=== PATIENT | male | born 1980 | race African-American/Black ===

== ENCOUNTER 2017-02-19 08:36 | Emergency (ER) | payer MEDICARE, MEDICAID ==
[2017-02-19] MEDS ORDERED: PREDNISONE 20 MG TABLET PO ONE (09:04)
[2017-02-19] MEDS ORDERED: ALBUTEROL SULFATE 0.083% NEB 2.5 MG/3 ML AMPUL NEB ONE (09:04)
--- NOTE | 2017-02-19 09:08 | ER Document Report ---
ED Respiratory Problem - General Chief Complaint: Congestion Stated Complaint: CONGESTION Time Seen by Provider: 02/19/17 08:45 Mode of Arrival: Ambulatory Information source: Patient Notes: Pt is a 36 year old male with lupus who presents to the ER today for runny nose and mild cough x 2 days. He admits to chest tightness and some sob. Pt states "this is usually how my lupus flares up." He denies joint aches, fever/chills, wheezing or other symptoms. TRAVEL OUTSIDE OF THE [place] IN LAST 30 DAYS: No - Related Data Allergies/Adverse Reactions: COMPA Inhibitors [Compa Inhibitors] Allergy (Intermediate, Verified 02/19/17 08:37) Hives prednisone [Prednisone] Allergy (Intermediate, Verified 02/19/17 08:37) Hives Sulfa (Sulfonamide Antibiotics) Allergy (Intermediate, Verified 02/19/17 08:37) Hives ACEINHIBITORS [COMPA Inhibitors] Allergy (Unknown, Verified 02/19/17 08:37) shellfish derived [Shellfish Derived] Allergy (Unknown, Verified 02/19/17 08:37) iodine [Iodine] Allergy (Verified 02/19/17 08:37) sulfamethoxazole [From Septra DS] Allergy (Verified 02/19/17 08:37) trimethoprim [From Septra DS] Allergy (Verified 02/19/17 08:37) Past Medical History - General Information source: Patient - Social History Smoking Status: Current Some Day Smoker Chew tobacco use (# tins/day): No Family History: Reviewed & Not Pertinent Patient has suicidal ideation: No Patient has homicidal ideation: No - Past Medical History Cardiac Medical History: Reports: Hx DVT Renal/ Medical History: Denies: Hx Peritoneal Dialysis Musculoskeltal Medical History: Reports Hx Arthritis - RA Past Surgical History: Reports: Hx Orthopedic Surgery - distal R index finger amputated, Hx Testicular Surgery - R testicle removed - Immunizations Immunizations up to date: Yes Hx Diphtheria, Pertussis, Tetanus Vaccination: No Review of Systems - Review of Systems Constitutional: No symptoms reported EENT: See HPI Cardiovascular: No symptoms reported Respiratory: No symptoms reported Gastrointestinal: No symptoms reported Genitourinary: No symptoms reported Male Genitourinary: No symptoms reported Musculoskeletal: No symptoms reported Skin: No symptoms reported Hematologic/Lymphatic: No symptoms reported Neurological/Psychological: No symptoms reported Physical Exam - Vital signs Vitals: Temp Pulse Resp BP Pulse Ox 98.1 F 70 18 109/61 93 02/19/17 08:41 02/19/17 08:41 02/19/17 08:41 02/19/17 08:41 02/19/17 08:41 - Notes Notes: PHYSICAL EXAMINATION: GENERAL: well appearing, but in no acute distress. HEAD: Atraumatic, normocephalic. EYES: Pupils equal round and reactive to light, extraocular movements intact, sclera anicteric, conjunctiva are normal. NECK: Normal range of motion, supple without lymphadenopathy LUNGS: CTAB and equal. No wheezes rales or rhonchi. HEART: regular rate and rhythm without murmurs ABDOMEN: Soft, no tenderness. No guarding, no rebound BACK: no vertebral tenderness, normal ROM GI/: no CVA tenderness EXTREMITIES: Normal range of motion, no pitting edema, No cyanosis. NEUROLOGICAL:cranial nerves grossly intact, normal motor and sensory exam PSYCH: Normal mood, normal affect. SKIN: Warm, Dry, normal turgor, no rashes Course - Re-evaluation Re-evalutation: 02/23/17 21:04 pt will be started on prednisone as it will help his cold symptoms and his lupus if in fact this is a flare. chest x ray negative today. pt given breathing treatment here, sent home with albuterol inhaler, reports feeling better. 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 Return immediately for any new or worsening symptoms. Follow up with primary care provider, call tomorrow to make followup appointment. Prescriptions: Prednisone [Deltasone 20 mg Tablet] 3 tab PO DAILY 5 Days tablet Forms: Return to Work Referrals: SILVESTRE SORIA MD [Primary Care Provider] - Follow up as needed
--- NOTE | 2017-02-19 09:49 | RADIOLOGY REPORT (SQ) ---
EXAM DESCRIPTION: CHEST PA/LAT COMPLETED DATE/TIME: 02/19/2017 9:40 am REASON FOR STUDY: sob COMPARISON: 11/20/2015 EXAM PARAMETERS: NUMBER OF VIEWS: two views TECHNIQUE: Digital Frontal and Lateral radiographic views of the chest acquired. RADIATION DOSE: NA LIMITATIONS: none FINDINGS: LUNGS AND PLEURA: No opacities, masses or pneumothorax. No pleural effusion. MEDIASTINUM AND HILAR STRUCTURES: No masses or contour abnormalities. HEART AND VASCULAR STRUCTURES: Heart normal size. No evidence for failure. BONES: Stable sclerosis of the humeral head suggestive of avascular necrosis. HARDWARE: None in the chest. OTHER: No other significant finding. IMPRESSION: NO ACUTE CARDIOPULMONARY PROCESS OR SIGNIFICANT CHANGE FROM PRIOR STUDIES. TECHNICAL DOCUMENTATION: JOB ID: [id number] [employer]- All Rights Reserved
[2017-02-19] MEDS ORDERED: ALBUTEROL SULFATE HFA (90 MCG/PUFF) 8 GM MDI (1 MDI/ER DISP) IH PRN (10:02)
[2017-02-19 10:37] VITALS: BP 108/62
== END 2017-02-19 10:37 | disposition home or self-care (01) ==
LOC: ER 08:36
DX: R06.02 Shortness of breath (principal); L93.0 Discoid lupus erythematosus; J00 Acute nasopharyngitis [common cold]; Z86.718 Personal history of other venous thrombosis and embolism; F17.200 Nicotine dependence, unspecified, uncomplicated; Z88.2 Allergy status to sulfonamides; Z88.1 Allergy status to other antibiotic agents; Z91.013 Allergy to seafood
CPT/HCPCS: 94640; 99283; 71046; A9270 ×2; J3490; J7512

== ENCOUNTER 2017-07-12 10:10 | Emergency (ER) | payer MEDICARE, MEDICAID ==
[2017-07-12 10:17] VITALS: BP 108/69
--- NOTE | 2017-07-12 10:47 | ER Document Report ---
HPI - HPI Pain Level: 3 Context: 36 yo male with hx/o Lupus, c/o sore throat, cough x 2 days. no fever Associated Symptoms: Body/muscle aches, Nonproductive cough, Headache, Rhinnorhea, Sinus pain/drainage. denies: Nausea, Vomiting Exacerbated by: Denies Relieved by: Denies Similar symptoms previously: No Recently seen / treated by doctor: No - CONSTITUTIONAL Constitutional: DENIES: Fever, Chills - EENT EENT: REPORTS: Sore Throat - RESPIRATORY Respiratory: REPORTS: Coughing Past Medical History - General Information source: Patient - Social History Smoking Status: Current Every Day Smoker Frequency of alcohol use: Occasional Drug Abuse: None Lives with: Family Family History: Reviewed & Not Pertinent Patient has suicidal ideation: No Patient has homicidal ideation: No - Medical History Medical History: Other - lupus - Past Medical History Cardiac Medical History: Reports: Hx DVT Renal/ Medical History: Denies: Hx Peritoneal Dialysis Musculoskeltal Medical History: Reports Hx Arthritis - RA Past Surgical History: Reports: Hx Orthopedic Surgery - distal R index finger amputated, Hx Testicular Surgery - R testicle removed - Immunizations Immunizations up to date: Yes Hx Diphtheria, Pertussis, Tetanus Vaccination: No Vertical Provider Document - CONSTITUTIONAL Agree With Documented VS: Yes Exam Limitations: No Limitations - INFECTION CONTROL TRAVEL OUTSIDE OF THE [place] IN LAST 30 DAYS: No - HEENT HEENT: Atraumatic, PERRLA, Pharyngeal Erythema - NECK Neck: Normal Inspection, Supple - RESPIRATORY Respiratory: Breath Sounds Normal, No Respiratory Distress Course - Re-evaluation Re-evalutation: 07/12/17 10:43 H&P c/w URI. with hx/o Lupus, will send with Rx for antibiotic but instructed not to start abx unless symptoms escalate. home care, pcm follow up and ED return precautions discussed with pt. pt stable for discharge - Vital Signs Vital signs: Temp Pulse Resp BP Pulse Ox 98.8 F 92 18 108/69 99 07/12/17 10:15 07/12/17 10:15 07/12/17 10:15 07/12/17 10:15 07/12/17 10:15 Discharge - Discharge Clinical Impression: URI, acute Condition: Stable Disposition: HOME, SELF-CARE Instructions: Urinary Tract Infection ([facility]), Antibiotic Therapy ([facility]) Additional Instructions: recommend OTC cough/cold medication such as AlkaSeltzer Plus follow up with primary care if symptoms persist start antibiotic if symptoms continue to escalate after 4 days Prescriptions: Amoxicillin 500 mg PO TID #21 tablet Referrals: SILVESTRE SORIA MD [Primary Care Provider] - Follow up as needed
== END 2017-07-12 10:52 | disposition home or self-care (01) ==
LOC: ER 10:10
DX: J06.9 Acute upper respiratory infection, unspecified (principal); J02.9 Acute pharyngitis, unspecified; M79.1 Myalgia; R51 Headache; F17.200 Nicotine dependence, unspecified, uncomplicated; Z86.718 Personal history of other venous thrombosis and embolism
CPT/HCPCS: 87070; 87880; 99283

== ENCOUNTER → 2018-04-27 | Outpatient (CLI) | payer MEDICARE ==
--- NOTE | 2018-04-27 16:47 | XCELERA REPORT ---
[address] [place] [facility] [place] [address] Lower Extremity Venous Evaluation Procedure: Color flow and duplex imaging of the veins of the left lower extremity as well as the right Common Femoral vein. Right Sided Venous Evaluation The right common femoral vein is fully compressible. Spontaneous and phasic flow is present in the right common femoral vein. Left Sided Venous Evaluation Normal vessel filling wall to wall, compression and augmentation as well as Colour flow down to the infrageniculate veins. Interpretation Summary No duplex evidence of DVT or obstruction in the left lower extremity nor in the right Common Femoral vein. Name: NAZ MANNSANJANA Mello Age: 37 yrs Gender: Male : 1980 Patient Status: Preadmit Patient Location: Study Date: 04/27/2018 01:36 PM Reason For Study: LLE SWELLING Ordering Physician: DAVID KINGSTON Performed By: Luis Angel Bansal : DAVID KINGSTON > Laci Perez
== END ==
LOC: SP 14:42
PROVIDERS: ATTEND Physician Assistant
DX: M79.89 Other specified soft tissue disorders (principal)
CPT/HCPCS: 93971

== ENCOUNTER 2018-05-25 15:48 | Emergency (ER) | payer MEDICARE, MEDICAID ==
[2018-05-25] MEDS ORDERED: DIPHENHYDRAMINE HCL 50 MG/ML VIAL IV ONE (16:26)
[2018-05-25] MEDS ORDERED: METHYLPREDNISOLONE INJ 125 MG/2 ML SDV IV ONE (16:26)
[2018-05-25] MEDS ORDERED: FAMOTIDINE INJ/PF 20 MG/2 ML SDV IV ONE (16:26)
--- NOTE | 2018-05-25 18:35 | ER Document Report ---
ED General - General Chief Complaint: Sore Throat Stated Complaint: SORE THROAT Time Seen by Provider: 05/25/18 16:14 Primary Care Provider: DAVID KINGSTON PA [NO LOCAL MD] - Follow up as needed Mode of Arrival: Ambulatory Information source: Patient Notes: Patient is a 37-year-old male who presents to the emergency department with complaints of itching in his throat. He states he believes he is having allergic reaction to a medication that he is taking for his face. He states that is the only new product he is used. Patient speaking in full complete sentences and swallowing without difficulty. Patient has no hives. He states the throat itching started just a few hours prior to arrival. TRAVEL OUTSIDE OF THE [place] IN LAST 30 DAYS: No - Related Data Allergies/Adverse Reactions: COMPA Inhibitors [Compa Inhibitors] Allergy (Intermediate, Verified 05/25/18 15:49) Hives Sulfa (Sulfonamide Antibiotics) Allergy (Intermediate, Verified 05/25/18 15:49) Hives ACEINHIBITORS [COMPA Inhibitors] Allergy (Unknown, Verified 05/25/18 15:49) shellfish derived [Shellfish Derived] Allergy (Unknown, Verified 05/25/18 15:49) iodine [Iodine] Allergy (Verified 05/25/18 15:49) sulfamethoxazole [From Septra DS] Allergy (Verified 05/25/18 15:49) trimethoprim [From Septra DS] Allergy (Verified 05/25/18 15:49) Past Medical History - General Information source: Patient - Social History Smoking Status: Current Every Day Smoker Frequency of alcohol use: None Drug Abuse: None Family History: Reviewed & Not Pertinent Patient has suicidal ideation: No Patient has homicidal ideation: No - Past Medical History Cardiac Medical History: Reports: Hx DVT Renal/ Medical History: Denies: Hx Peritoneal Dialysis Musculoskeletal Medical History: Reports Hx Arthritis - RA Past Surgical History: Reports: Hx Orthopedic Surgery - distal R index finger amputated, Hx Testicular Surgery - R testicle removed - Immunizations Immunizations up to date: Yes Hx Diphtheria, Pertussis, Tetanus Vaccination: No Review of Systems - Review of Systems Constitutional: No symptoms reported EENT: Other - Throat itchiness Cardiovascular: No symptoms reported Respiratory: No symptoms reported Gastrointestinal: No symptoms reported Genitourinary: No symptoms reported Male Genitourinary: No symptoms reported Musculoskeletal: No symptoms reported Skin: No symptoms reported Hematologic/Lymphatic: No symptoms reported Neurological/Psychological: No symptoms reported Physical Exam - Vital signs Vitals: Temp Pulse Resp BP Pulse Ox 98.3 F 86 17 108/59 L 100 05/25/18 15:53 05/25/18 15:53 05/25/18 15:53 05/25/18 15:53 05/25/18 15:53 - Notes Notes: PHYSICAL EXAMINATION: GENERAL: Well-appearing, well-nourished and in no acute distress. HEAD: Atraumatic, normocephalic. EYES: Pupils equal round and reactive to light, extraocular movements intact, sclera anicteric, conjunctiva are normal. ENT: Nares patent, oropharynx clear without exudates. Moist mucous membranes. NECK: Normal range of motion, supple without lymphadenopathy LUNGS: Breath sounds clear to auscultation bilaterally and equal. No wheezes rales or rhonchi. HEART: Regular rate and rhythm without murmurs ABDOMEN: Soft, nontender, nondistended abdomen. No guarding, no rebound. No m asses appreciated. Musculoskeletal: Normal range of motion, no pitting or edema. No cyanosis. NEUROLOGICAL: Cranial nerves grossly intact. Normal speech, normal gait. Normal sensory, motor exams PSYCH: Normal mood, normal affect. SKIN: Warm, Dry, normal turgor, no rashes or lesions noted. Course - Re-evaluation Re-evalutation: Patient given 125 mg Solu-Medrol, 20 mg Pepcid IV and 25 mg of Benadryl. Patient was monitored for 2 hours. Patient reports his symptoms have improved. We did not give patient IM epinephrine as patient did not have severe symptoms or any signs of anaphylaxis. Patient will be discharged home with instructions to continue taking Pepcid, prednisone and Benadryl. Patient given strict ED return precautions. Patient told not to take the face cream until he is seen by his primary care provider for follow-up. - Vital Signs Vital signs: Temp Pulse Resp BP Pulse Ox 98.3 F 86 16 132/62 H 100 05/25/18 15:53 05/25/18 15:53 05/25/18 18:43 05/25/18 18:43 05/25/18 18:43 Discharge - Discharge Clinical Impression: Itching sensation in throat, Allergic reaction caused by a drug Condition: Stable Disposition: HOME, SELF-CARE Additional Instructions: Your symptoms are most likely being caused by some type of allergic reaction. Please take the medications I have prescribed as directed. Please also take 25- 50 mg of Benadryl every 6 hours, this may cause some drowsiness to please use caution when taking it. Please do not use the triamcinolone cream until we are able to figure out if that is what is causing this. Please follow-up with your primary care provider, call them next week for an appointment. Return to the emergency department for any new or worsening symptoms to include difficulty breathing, shortness of breath or difficulty swallowing. Prescriptions: Famotidine [Pepcid 20 mg Tablet] 20 mg PO BID #10 tablet RX: Prednisone [Deltasone 20 mg Tablet] 3 tab PO DAILY 4 Days #12 tablet Referrals: DAVID KINGSTON PA [NO LOCAL MD] - Follow up as needed
[2018-05-25 18:47] VITALS: BP 132/62
== END 2018-05-25 18:47 | disposition home or self-care (01) ==
LOC: ER 15:48
DX: J02.9 Acute pharyngitis, unspecified (principal); R09.89 Other specified symptoms and signs involving the circulatory and respiratory systems; T50.905A Adverse effect of unspecified drugs, medicaments and biological substances, initial encounter; X58.XXXA Exposure to other specified factors, initial encounter; Z88.3 Allergy status to other anti-infective agents; Z88.2 Allergy status to sulfonamides; F17.200 Nicotine dependence, unspecified, uncomplicated; Z86.718 Personal history of other venous thrombosis and embolism
CPT/HCPCS: 99282; 96375; 96374; J1200; J2930; S0028

== ENCOUNTER 2018-05-30 23:18 | Emergency (ER) | payer MEDICARE, MEDICAID ==
[2018-05-31 00:30] VITALS: BP 111/71
== END 2018-05-31 01:55 | disposition left against medical advice (07) ==
LOC: ER 23:18
DX: Z53.21 Procedure and treatment not carried out due to patient leaving prior to being seen by health care provider (principal)

== ENCOUNTER 2018-05-31 19:51 | Emergency (ER) | payer MEDICARE, MEDICAID ==
--- NOTE | 2018-05-31 23:07 | ER Document Report ---
ED Medical Screen (RME) - General Chief Complaint: Shortness Of Breath Stated Complaint: POSSIBLE BLOOD CLOT Time Seen by Provider: 05/31/18 22:55 Primary Care Provider: LUZ ELENA BLANCO PA [Primary Care Provider] - Follow up as needed TRAVEL OUTSIDE OF THE [place] IN LAST 30 DAYS: No - HPI Notes: 05/31/18 23:05 Patient is a 37-year-old male with a history of DVT in his left lower extremity presents emergency department per the direction of his family doctor, Dr. Hirsch, for further evaluation for possible PE or blood clot in his leg. Patient states that over the past 4 days he has had shortness of breath and mild chest pain. Ambulation makes his symptoms worse. Patient was told today by his family doctor that he has an elevated d-dimer at 3.3. Patient also states that his left lower leg is more swollen than his usual (Lt usually larger than Rt). Denies RODRIGUEZ, fever, neck pain, URI, Abd pain, or rash. I have treated and performed a rapid initial assessment of this patient. A comprehensive ED assessment and evaluation of the patient, analysis of test results and completion of medical decision making process will be conducted by additional ED providers. PHYSICAL EXAMINATION: GENERAL: Well-appearing, well-nourished and in no acute distress. A&Ox4. Answers questions appropriately. LUNGS: Breath sounds clear to auscultation bilaterally and equal. No wheezes rales or rhonchi. HEART: Regular rate and rhythm without murmurs, rubs, gallops. Extremities: LLE 1-2+ pitting edema, RLE trace pitting edema. NEUROLOGICAL: Normal speech, normal gait. PSYCH: Normal mood, normal affect. - Related Data Allergies/Adverse Reactions: COMPA Inhibitors [Compa Inhibitors] Allergy (Intermediate, Verified 05/25/18 15:49) Hives Sulfa (Sulfonamide Antibiotics) Allergy (Intermediate, Verified 05/25/18 15:49) Hives ACEINHIBITORS [COMPA Inhibitors] Allergy (Unknown, Verified 05/25/18 15:49) shellfish derived [Shellfish Derived] Allergy (Unknown, Verified 05/25/18 15:49) iodine [Iodine] Allergy (Verified 05/25/18 15:49) sulfamethoxazole [From Septra DS] Allergy (Verified 05/25/18 15:49) trimethoprim [From Septra DS] Allergy (Verified 05/25/18 15:49) Past Medical History - Social History Chew tobacco use (# tins/day): No Frequency of alcohol use: Social Drug Abuse: None - Past Medical History Cardiac Medical History: Reports: Hx DVT Renal/ Medical History: Denies: Hx Peritoneal Dialysis Musculoskeltal Medical History: Reports Hx Arthritis - RA Past Surgical History: Reports: Hx Orthopedic Surgery - distal R index finger amputated, Hx Testicular Surgery - R testicle removed - Immunizations Immunizations up to date: Yes Hx Diphtheria, Pertussis, Tetanus Vaccination: No Physical Exam - Vital signs Vitals: Temp Pulse Resp BP Pulse Ox 98.1 F 93 16 120/55 L 100 05/31/18 20:01 05/31/18 20:01 05/31/18 20:01 05/31/18 20:01 05/31/18 20:01 Course - Vital Signs Vital signs: Temp Pulse Resp BP Pulse Ox 98.1 F 93 16 120/55 L 100 05/31/18 20:01 05/31/18 20:01 05/31/18 20:01 05/31/18 20:01 05/31/18 20:01 Doctor's Discharge - Discharge Referrals: LUZ ELENA BLANCO PA [Primary Care Provider] - Follow up as needed
--- NOTE | 2018-06-01 00:14 | RADIOLOGY REPORT (SQ) ---
EXAM DESCRIPTION: XR CHEST 1 VIEW COMPLETED DATE/TME: 05/31/2018 23:00 CLINICAL HISTORY: 37 years, Male, SOB Comparison: None FINDINGS: No focal lung consolidation. No pleural effusion. No pneumothorax. Cardiac and mediastinal silhouette is unremarkable. No acute osseous abnormality. Soft tissues are unremarkable. IMPRESSION: No acute findings. No focal lung consolidation.
[2018-06-01 01:23] LABS: ABSOLUTE EOSINOPHILS # (AUTO) 0.1 10^3/uL (0.0-0.6); ABSOLUTE MONOCYTES (AUTO) 0.6 10^3/uL (0.1-1.4); ABSOLUTE NEUT (AUTO) 3.4 10^3/uL (1.7-8.2); BASOPHILS % (AUTO) 0.6 % (0-2); EOSINOPHILS % (AUTO) 1.8 % (0-6); HEMATOCRIT 38.5 % (37.9-51.0); LYMPHOCYTES % (AUTO) 42.2 % (13-45); MEAN CORPUSCULAR HGB CONC 33.8 g/dL (32.0-36.0); MEAN CORPUSCULAR VOLUME 89 fl (80-97); MONOCYTES % (AUTO) 7.9 % (3-13); PLATELET COUNT 122 10^3/uL (150-450); RED BLOOD COUNT 4.35 10^6/uL (4.35-5.55); RED CELL DISTRIBUTION WIDTH 13.9 % (11.5-14.0); SEGMENTED NEUTROPHILS % (AUTO) 47.5 % (42-78); TOTAL CELLS COUNTED % (AUTO) 100 %; WHITE BLOOD COUNT 7.2 10^3/uL (4.0-10.5)
[2018-06-01 01:28] LABS: INTERNATIONAL RATION (INR) 1.01; PROTHROMBIN TIME 13.8 SEC (11.4-15.4)
[2018-06-01 01:29] LABS: PARTIAL THROMBOPLASTIN TIME 26.3 SEC (23.5-35.8)
--- NOTE | 2018-06-01 01:43 | RADIOLOGY REPORT (SQ) ---
EXAM DESCRIPTION: CT CHEST ANGIOGRAPHY WITHOUT THEN WITH IV CONTRAST COMPLETED DATE/TME: 05/31/2018 23:00 CLINICAL HISTORY: 37 years, Male, elevated d-dimer, sob, cp COMPARISON: 07/09/2014 CTA chest TECHNIQUE: 624 Images stored on PACS. All CT scanners at this facility use dose modulation, iterative reconstruction, and/or weight based dosing when appropriate to reduce radiation dose to as low as reasonably achievable (ALARA). Axial images obtained with coronal and sagittal MIPS reconstructions [facility]: Dose Right [facility]: CareDose [facility]: Dose Right [facility]: Teradose 4D [facility]: [employer] LIMITATIONS: None. FINDINGS: The mediastinal vasculature enhances normally. There is no intraluminal filling defect to suggest pulmonary embolus. Negative for thoracic aortic aneurysm or dissection. No mediastinal or hilar adenopathy. Heart and pericardium are unremarkable. Limited evaluation of upper abdomen unremarkable. Osseous structures grossly intact. No pneumothorax. Visualized airways are patent. Lungs are clear IMPRESSION: Negative CTA chest TECHNICAL DOCUMENTATION: Quality ID # [id number]: Final reports with documentation of one or more dose reduction techniques (e.g., Automated exposure control, adjustment of the mA and/or kV according to patient size, use of iterative reconstruction technique) copyright 2010 [employer]- All Rights Reserved
[2018-06-01 01:47] LABS: ALANINE AMINOTRANSFERASE 27 U/L (21-72); ALBUMIN 3.8 g/dL (3.5-5.0); ALKALINE PHOSPHATASE 58 U/L (38-126); ANION GAP 7 (5-19); ASPARTATE AMINO TRANSFERASE 19 U/L (17-59); BILIRUBIN,DIRECT 0.2 mg/dL (0.0-0.4); BILIRUBIN,TOTAL 0.5 mg/dL (0.2-1.3); BLOOD UREA NITROGEN 15 mg/dL (7-20); CALCIUM 9.1 mg/dL (8.4-10.2); CARBON DIOXIDE 31 mmol/L (22-30); CHLORIDE 105 mmol/L (98-107); GLUCOSE 116 mg/dL (75-110); POTASSIUM 3.6 mmol/L (3.6-5.0); SODIUM 142.6 mmol/L (137-145); TOTAL PROTEIN 7.2 g/dL (6.3-8.2)
--- NOTE | 2018-06-01 02:36 | ER Document Report ---
ED General - General Chief Complaint: Shortness Of Breath Stated Complaint: POSSIBLE BLOOD CLOT Time Seen by Provider: 05/31/18 22:55 Primary Care Provider: LUZ ELENA BLANCO PA [PHYSICIAN [employer]ING PAT[employer]ER] - Follow up as needed Notes: Patient is a 37-year-old male with a history of DVT in his left lower extremity presents emergency department per the direction of his family doctor, Dr. Hirsch, for further evaluation for possible PE. Patient states that over the past 4 days he has had shortness of breath and mild chest pain. Pain is regarded as mild, intermittent, stabbing in nature. States that exerting himself seems to worsen his discomfort, rest seems to improve the pain. Patient was told today by his family doctor that he has an elevated d-dimer at 3.3. Patient also states that his left lower leg is more swollen than his usual (Lt usually larger than Rt). Denies any radiation of the pain. No pain to the back. Denies cardiac history. Denies any chest pain at the time of my evaluation. TRAVEL OUTSIDE OF THE [place] IN LAST 30 DAYS: No - Related Data Allergies/Adverse Reactions: COMPA Inhibitors [Compa Inhibitors] Allergy (Intermediate, Verified 05/25/18 15:49) Hives Sulfa (Sulfonamide Antibiotics) Allergy (Intermediate, Verified 05/25/18 15:49) Hives ACEINHIBITORS [COMPA Inhibitors] Allergy (Unknown, Verified 05/25/18 15:49) shellfish derived [Shellfish Derived] Allergy (Unknown, Verified 05/25/18 15:49) iodine [Iodine] Allergy (Verified 05/25/18 15:49) sulfamethoxazole [From Septra DS] Allergy (Verified 05/25/18 15:49) trimethoprim [From Septra DS] Allergy (Verified 05/25/18 15:49) Past Medical History - General Information source: Patient - Social History Smoking Status: Current Every Day Smoker Chew tobacco use (# tins/day): No Frequency of alcohol use: Social Drug Abuse: None Lives with: Family Family History: Reviewed & Not Pertinent Patient has suicidal ideation: No Patient has homicidal ideation: No - Past Medical History Cardiac Medical History: Reports: Hx DVT Renal/ Medical History: Denies: Hx Peritoneal Dialysis Musculoskeletal Medical History: Reports Hx Arthritis - RA Past Surgical History: Reports: Hx Orthopedic Surgery - distal R index finger amputated, Hx Testicular Surgery - R testicle removed - Immunizations Immunizations up to date: Yes Hx Diphtheria, Pertussis, Tetanus Vaccination: No Review of Systems - Review of Systems Notes: Constitutional: Negative for fever. HENT: Negative for sore throat. Eyes: Negative for visual changes. Cardiovascular: Positive for chest pain. Respiratory: Positive for shortness of breath. Gastrointestinal: Negative for abdominal pain, vomiting or diarrhea. Genitourinary: Negative for dysuria. Musculoskeletal: Negative for back pain. Skin: Negative for rash. Neurological: Negative for headaches, weakness or numbness. 10 point ROS negative except as marked above and in HPI. Physical Exam - Vital signs Vitals: Temp Pulse Resp BP Pulse Ox 98.1 F 93 16 120/55 L 100 05/31/18 20:01 05/31/18 20:01 05/31/18 20:01 05/31/18 20:01 05/31/18 20:01 Interpretation: Normal Notes: PHYSICAL EXAMINATION: GENERAL: Well-appearing, well-nourished and in no acute distress. HEAD: Atraumatic, normocephalic. EYES: Pupils equal round and reactive to light, extraocular movements intact, s clera anicteric, conjunctiva are normal. ENT: nares patent, oropharynx clear without exudates. Moist mucous membranes. NECK: Normal range of motion, supple without lymphadenopathy LUNGS: Breath sounds clear to auscultation bilaterally and equal. No wheezes rales or rhonchi. HEART: Regular rate and rhythm without murmurs ABDOMEN: Soft, nontender, normoactive bowel sounds. No guarding, no rebound. No masses appreciated. EXTREMITIES: Normal range of motion, mild trace edema in the left lower extremity. None present on right no cyanosis. NEUROLOGICAL: No focal neurological deficits. Moves all extremities spontaneously and on command. PSYCH: Normal mood, normal affect. SKIN: Warm, Dry, normal turgor, no rashes or lesions noted. Course - Re-evaluation Re-evalutation: 06/01/18 02:34 Patient presents with concerns of a possible pulmonary embolus stating that he has been more short of breath over the last 4 days and feels like his chronic left lower cavity swelling may be worse than normal. Had a d-dimer obtained by his primary care doctor noted to be elevated. CT of the chest is negative. Patient has no appreciable edema to the left lower cavity although it is slightly larger than the right which he states is about at baseline. I did express the patient that we are currently unable to get a venous Doppler of his left lower summary given the time of night. He does not wish to remain in the emergency department overnight. I have asked that he follow-up with his primary care doctor tomorrow morning, contact office and request for the study to be completed as an outpatient or return to the emergency department at 8 AM when the study can be done at that time. He is agreeable to this plan. At this time will discharge with return precautions and follow-up recommendations. Verbal discharge instructions given a the bedside and opportunity for questions given. Medication warnings reviewed. Patient is in agreement with this plan and has verbalized understanding of return precautions and the need for primary care follow-up tomorrow. - Vital Signs Vital signs: Temp Pulse Resp BP Pulse Ox 97.6 F 93 19 138/63 H 97 06/01/18 03:00 05/31/18 20:01 06/01/18 03:00 06/01/18 03:00 06/01/18 03:00 - Laboratory Result Diagrams: 06/01/18 01:10 06/01/18 01:10 Laboratory results interpreted by me: 06/01/18 06/01/18 01:10 01:10 Hgb 13.0 L Plt Count 122 L Carbon Dioxide 31 H Glucose 116 H - Diagnostic Test Radiology reviewed: Reports reviewed Discharge - Discharge Clinical Impression: Shortness of breath, History of DVT (deep vein thrombosis), Left leg swelling Condition: Good Disposition: HOME, SELF-CARE Additional Instructions: Follow-up with Dr. Hirsch in the morning to determine whether or not you can get a venous Doppler study done of your left lower extremity as an outpatient within the next 24 hours. Your or your primary doctor does prefer you can return to the emergency department in the morning for the study to be completed. This CAT scan your chest is normal today and you do not have any evidence of a blood clot in your lung. Return if you develop chest pain, worsening shortness of breath, pass out, or have any other symptoms that are worrisome to you. Referrals: LUZ ELENA BLANCO PA [PHYSICIAN [employer]ING PATTERN[employer]ER] - Follow up as needed
[2018-06-01 03:11] VITALS: BP 138/63
--- NOTE | 2018-06-01 09:51 | EKG REPORT ---
SEVERITY:- NORMAL ECG - SINUS RHYTHM : Confirmed by: Estefany Goldsmith MD 01-Jun-2018 09:51:01
== END 2018-06-01 03:11 | disposition home or self-care (01) ==
LOC: ER 19:51
DX: R06.02 Shortness of breath (principal); R07.9 Chest pain, unspecified; M79.89 Other specified soft tissue disorders; Z86.718 Personal history of other venous thrombosis and embolism; F17.200 Nicotine dependence, unspecified, uncomplicated
CPT/HCPCS: 36415; 71045; 71046; 71275; 80053; 84484; 85025; 85379; 85610; 85730; 93005; 93010; 99285

== ENCOUNTER → 2018-05-31 | Outpatient (CLI) | payer MEDICARE, MEDICAID ==
--- NOTE | 2018-05-31 16:18 | RADIOLOGY REPORT (SQ) ---
EXAM DESCRIPTION: CHEST PA/LATERAL COMPLETED DATE/TIME: 05/31/2018 4:10 pm REASON FOR STUDY: SHORTNESS OF BREATH COMPARISON: 02/19/2017 EXAM PARAMETERS: NUMBER OF VIEWS: two views TECHNIQUE: Digital Frontal and Lateral radiographic views of the chest acquired. RADIATION DOSE: NA LIMITATIONS: none FINDINGS: LUNGS AND PLEURA: No opacities, masses or pneumothorax. No pleural effusion. MEDIASTINUM AND HILAR STRUCTURES: No masses or contour abnormalities. HEART AND VASCULAR STRUCTURES: Heart normal size. No evidence for failure. BONES: No acute findings. HARDWARE: None in the chest. OTHER: No other significant finding. IMPRESSION: NO SIGNIFICANT RADIOGRAPHIC FINDING IN THE CHEST. TECHNICAL DOCUMENTATION: JOB ID: [id number] [employer]- All Rights Reserved Reading location - IP/workstation name: [email or web address]
[2018-05-31 17:00] LABS: ABSOLUTE EOSINOPHILS # (AUTO) 0.1 10^3/uL (0.0-0.6); ABSOLUTE LYMPHOCYTES (AUTO) 2.3 10^3/uL (0.5-4.7); ABSOLUTE MONOCYTES (AUTO) 0.4 10^3/uL (0.1-1.4); ABSOLUTE NEUT (AUTO) 2.1 10^3/uL (1.7-8.2); BASOPHILS % (AUTO) 0.3 % (0-2); EOSINOPHILS % (AUTO) 1.7 % (0-6); HEMATOCRIT 38.1 % (37.9-51.0); HEMOGLOBIN 12.8 g/dL (13.5-17.0); LYMPHOCYTES % (AUTO) 47.4 % (13-45); MEAN CORPUSCULAR HEMOGLOBIN 29.6 pg (27.0-33.4); MEAN CORPUSCULAR HGB CONC 33.7 g/dL (32.0-36.0); MEAN CORPUSCULAR VOLUME 88 fl (80-97); MONOCYTES % (AUTO) 8.2 % (3-13); PLATELET COUNT 117 10^3/uL (150-450); RED BLOOD COUNT 4.33 10^6/uL (4.35-5.55); SEGMENTED NEUTROPHILS % (AUTO) 42.4 % (42-78); TOTAL CELLS COUNTED % (AUTO) 100 %; WHITE BLOOD COUNT 4.9 10^3/uL (4.0-10.5)
[2018-05-31 17:20] LABS: ALANINE AMINOTRANSFERASE 33 U/L (21-72); ALBUMIN 3.9 g/dL (3.5-5.0); ALKALINE PHOSPHATASE 59 U/L (38-126); ANION GAP 7 (5-19); ASPARTATE AMINO TRANSFERASE 22 U/L (17-59); BILIRUBIN,DIRECT 0.2 mg/dL (0.0-0.4); BILIRUBIN,TOTAL 0.6 mg/dL (0.2-1.3); BLOOD UREA NITROGEN 13 mg/dL (7-20); CALCIUM 9.4 mg/dL (8.4-10.2); CARBON DIOXIDE 31 mmol/L (22-30); CHLORIDE 103 mmol/L (98-107); GLUCOSE 76 mg/dL (75-110); POTASSIUM 3.6 mmol/L (3.6-5.0); SODIUM 140.7 mmol/L (137-145); TOTAL PROTEIN 7.3 g/dL (6.3-8.2)
== END ==
LOC: OD 15:28
PROVIDERS: ATTEND Physician Assistant
DX: R06.02 Shortness of breath (principal)
CPT/HCPCS: 36415; 71046; 80053; 85025; 85379

== ENCOUNTER 2018-10-16 01:53 | Emergency (ER) | payer MEDICARE, MEDICAID ==
--- NOTE | 2018-10-16 02:26 | ER Document Report ---
ED GI/ - General Chief Complaint: Epigastric Pain Stated Complaint: EPIGASTRIC PAIN Time Seen by Provider: 10/16/18 02:26 Primary Care Provider: JEROME ABRAHAM MD [Primary Care Provider] - Follow up as needed Mode of Arrival: Ambulatory Information source: Patient Notes: HISTORY OF PRESENT ILLNESS: Patient is a 38-year-old male with a past medical history of lupus and intermittent alcohol abuse who presents with sudden onset epigastric tenderness approximately 1 hour after eating "hamburger" earlier before presentation. Patient reports that he drinks approximately 3 to 4 days every week, and has drank the past 3 days straight. He denies drug abuse. Location: Epigastric Onset: Sudden Alleviation: None Provocation: Unknown Quality: Aching Radiation: None Severity: Mild to moderate Timing: Constant History of abdominal surgery: None Associated symptoms: Mild nausea with 1 or 2 episodes of nonbloody and nonbilious emesis Last bowel movement: Earlier today and normal REVIEW OF SYSTEMS: CONSTITUTIONAL : Denies fever or chills, no sweats. Denies recent illness. EENT: Denies eye, ear, throat, or mouth pain or symptoms. Denies nasal or sinus congestion. CARDIOVASCULAR: Denies chest pain. Denies swelling of the legs. RESPIRATORY: Denies cough, cold, or chest congestion. Denies shortness of breath or difficulty breathing. Denies wheezing. GASTROINTESTINAL: Positive for abdominal pain. Positive for nausea and vomiting, no diarrhea. Denies constipation. GENITOURINARY: Denies difficulty urinating, painful urination, burning, frequency, or blood in urine. FEMALE GENITOURINARY: Denies vaginal bleeding, abnormal or irregular periods. MUSCULOSKELETAL: Denies neck or back pain or joint pain or swelling. SKIN: Denies rash or skin lesions. HEMATOLOGIC : Denies easy bruising or bleeding. LYMPHATIC: Denies swollen, enlarged glands. NEUROLOGICAL: Denies altered mental status or loss of consciousness. Denies headache. Denies weakness or paralysis or loss of use of either side. Denies problems with gait or speech. Denies sensory or motor loss. PSYCHIATRIC: Denies anxiety or stress or depression. All other systems reviewed and negative. PHYSICAL EXAMINATION: GENERAL: Well-appearing, well-nourished and in no acute distress. HEAD: Atraumatic, normocephalic. No scalp deformity, depression, or crepitance. EYES: Pupils are 3 mm and equal/round/reactive to light, extraocular movements intact, sclera anicteric, conjunctiva are normal. ENT: Nares patent bilaterally, oropharynx. Moist mucous membranes. No tonsil hypertrophy. NECK: Normal range of motion, supple without lymphadenopathy. LUNGS: Breath sounds present, equal, and clear to auscultation bilaterally. No wheezes, rales, or rhonchi. HEART: Regular rate and rhythm without murmurs, rubs, or gallops. 2+ peripheral pulses. Normal capillary refill. ABDOMEN: Soft, mild tenderness in the epigastric area. Normoactive bowel sounds. No guarding, no rebound. No masses appreciated. BACK: Normal contour, no midline tenderness. Rectal exam deferred. GENITAL/PELVIC: Deferred. EXTREMITIES: Normal range of motion, no pitting or edema. No cyanosis. NEUROLOGICAL: No focal neurological deficits. Moves all extremities spontaneously and on command. PSYCH: Normal mood, normal affect. No suicidal thoughts/ideations. No homicidal thoughts/ideations. No hallucinations. SKIN: Warm, dry, normal turgor, no rashes or lesions noted. ASSESSMENT AND PLAN: This patient is a 38-year-old male who presents with epigastric abdominal pain. 1. Will obtain labs, urine, and reassess after IV fluids. 2. Will observe for improvement. TRAVEL OUTSIDE OF THE [place] IN LAST 30 DAYS: No - HPI Patient complains to provider of: Abdominal pain Onset: Just prior to arrival Timing/Duration: Sudden Quality of pain: Achy, Cramping Severity at maximum: Mild Severity in ED: Mild Pain Level: 2 Context: Bad food Location: Epigastric Sexual history: Active Associated symptoms: Nausea, Vomiting Exacerbated by: Denies Relieved by: Denies Similar symptoms previously: No Recently seen / treated by doctor: No - Related Data Allergies/Adverse Reactions: COMPA Inhibitors [Compa Inhibitors] Allergy (Intermediate, Verified 05/25/18 15:49) Hives Sulfa (Sulfonamide Antibiotics) Allergy (Intermediate, Verified 05/25/18 15:49) Hives ACEINHIBITORS [COMPA Inhibitors] Allergy (Unknown, Verified 05/25/18 15:49) shellfish derived [Shellfish Derived] Allergy (Unknown, Verified 05/25/18 15:49) iodine [Iodine] Allergy (Verified 05/25/18 15:49) sulfamethoxazole [From Septra DS] Allergy (Verified 05/25/18 15:49) trimethoprim [From Septra DS] Allergy (Verified 05/25/18 15:49) Past Medical History - General Information source: Patient - Social History Smoking Status: Former Smoker Chew tobacco use (# tins/day): No Frequency of alcohol use: Heavy Drug Abuse: None Lives with: Family Family History: Reviewed & Not Pertinent Patient has suicidal ideation: No Patient has homicidal ideation: No - Past Medical History Cardiac Medical History: Reports: Hx DVT Pulmonary Medical History: Reports: None EENT Medical History: Reports: None Neurological Medical History: Reports: None Endocrine Medical History: Reports: None Renal/ Medical History: Reports: None. Denies: Hx Peritoneal Dialysis Malignancy Medical History: Reports None GI Medical History: Reports: None Musculoskeletal Medical History: Reports Hx Arthritis - RA Skin Medical History: Reports None Psychiatric Medical History: Reports: None Traumatic Medical History: Reports: None Infectious Medical History: Reports: None Past Surgical History: Reports: Hx Orthopedic Surgery - distal R index finger amputated, Hx Testicular Surgery - R testicle removed - Immunizations Immunizations up to date: Yes Hx Diphtheria, Pertussis, Tetanus Vaccination: No Review of Systems - Review of Systems Constitutional: No symptoms reported EENT: No symptoms reported Cardiovascular: No symptoms reported Respiratory: No symptoms reported Gastrointestinal: See HPI, Abdominal pain, Nausea, Vomiting. denies: Diarrhea Genitourinary: No symptoms reported Male Genitourinary: No symptoms reported Musculoskeletal: No symptoms reported Skin: No symptoms reported Hematologic/Lymphatic: No symptoms reported Neurological/Psychological: No symptoms reported -: Yes All other systems reviewed and negative Physical Exam - Vital signs Vitals: Temp Pulse Resp BP Pulse Ox 97.8 F 70 16 114/64 99 10/16/18 01:54 10/16/18 01:54 10/16/18 01:54 10/16/18 01:54 10/16/18 01:54 Interpretation: Normal - General General appearance: Appears well, Alert - HEENT Head: Normocephalic, Atraumatic Eyes: Normal Pupils: PERRL - Respiratory Respiratory status: No respiratory distress Chest status: Nontender Breath sounds: Normal Chest palpation: Normal - Cardiovascular Rhythm: Regular Heart sounds: Normal auscultation Murmur: No - Abdominal Inspection: Normal Distension: No distension Bowel sounds: Normal Tenderness: Nontender Organomegaly: No organomegaly - Back Back: Normal, Nontender - Extremities General upper extremity: Normal inspection, Nontender, Normal color, Normal ROM, Normal temperature General lower extremity: Normal inspection, Nontender, Normal color, Normal ROM, Normal temperature, Normal weight bearing. No: Hamzah's sign - Neurological Neuro grossly intact: Yes Cognition: Normal Orientation: AAOx4 [place] Coma Scale Eye Opening: Spontaneous [place] Coma Scale Verbal: Oriented [place] Coma Scale Motor: Obeys Commands Naomy Coma Scale Total: 15 Speech: Normal Motor strength normal: LUE, RUE, LLE, RLE Sensory: Normal - Psychological Associated symptoms: Normal affect, Normal mood - Skin Skin Temperature: Warm Skin Moisture: Dry Skin Color: Normal Course - Re-evaluation Re-evalutation: 10/16/18 05:18 Labs are unremarkable other than a mildly elevated lipase, which could be normal in the setting of vomiting but also from the patient's recent alcohol ingestion. Will discharge the patient home with strict return precautions and follow-up with primary care. All results were explained to and discussed with the patient, and all questions addressed and answered for the patient. The patient voices both understanding and agreeing with the plan. - Vital Signs Vital signs: Temp Pulse Resp BP Pulse Ox 97.8 F 70 16 114/64 99 10/16/18 01:54 10/16/18 01:54 10/16/18 01:54 10/16/18 01:54 10/16/18 01:54 - Laboratory Result Diagrams: 10/16/18 02:57 10/16/18 02:57 Laboratory results interpreted by me: 10/16/18 10/16/18 02:57 02:59 Hgb 12.9 L RDW 14.8 H Plt Count 102 L Urine Ketones TRACE H Urine Blood SMALL H Ur Leukocyte Esterase MODERATE H - EKG Interpretation by Fl EKG shows normal: Sinus rhythm Rate: Normal Rhythm: NSR Clifford/QRS: No: Right axis deviation, Left axis deviation, RBBB, LBBB, IVCD, LAHB/LAFB, LPHB/LPFB, Bifasicular block Voltage: No: Increased voltage, Consistant with LVH, Decreased voltage, Throughout, Limb leads P Waves: No: ANITA, LAE, Absent, AV Dissociation, Other Heart block present: No: 1st Degree, Mobitz 1, Mobitz 2, CHB (3rd degree block) When compared to previous EKG there are: No significant change Discharge - Discharge Clinical Impression: Gastritis Qualifiers: Gastritis type: alcoholic Chronicity: acute Gastritis bleeding: without bleeding Qualified Code(s): K29.20 - Alcoholic gastritis without bleeding Condition: Good Disposition: HOME, SELF-CARE Instructions: Gastritis (OM) Additional Instructions: You have been evaluated in the Emergency Department for abdominal pain and vomiting. While here, you had blood work that was normal and it is now safe to be discharged home. Please follow-up with your primary physician as instructed in 1 week to be rechecked. Return to the Emergency Department if you experience worsening nausea, worsening pain, or any other concerning symptoms. Prescriptions: Tramadol HCl [Ultram 50 mg Tablet] 50 mg PO Q6HP PRN #28 tablet PRN Reason: For Pain Ondansetron [Zofran Odt 4 mg Tablet] 1 tab PO Q6HP PRN #30 tab.rapdis PRN Reason: For Nausea/Vomiting Referrals: JEROME ABRAHAM MD [Primary Care Provider] - Follow up as needed Print Language: Icelandic
[2018-10-16 03:11] LABS: ABSOLUTE EOSINOPHILS # (AUTO) 0.1 10^3/uL (0.0-0.6); ABSOLUTE LYMPHOCYTES (AUTO) 1.7 10^3/uL (0.5-4.7); ABSOLUTE MONOCYTES (AUTO) 0.3 10^3/uL (0.1-1.4); BASOPHILS % (AUTO) 0.5 % (0-2); EOSINOPHILS % (AUTO) 1.6 % (0-6); HEMATOCRIT 38.9 % (37.9-51.0); HEMOGLOBIN 12.9 g/dL (13.5-17.0); LYMPHOCYTES % (AUTO) 42.5 % (13-45); MEAN CORPUSCULAR HEMOGLOBIN 29.3 pg (27.0-33.4); MEAN CORPUSCULAR HGB CONC 33.3 g/dL (32.0-36.0); MEAN CORPUSCULAR VOLUME 88 fl (80-97); MONOCYTES % (AUTO) 7.6 % (3-13); PLATELET COUNT 102 10^3/uL (150-450); RED BLOOD COUNT 4.41 10^6/uL (4.35-5.55); RED CELL DISTRIBUTION WIDTH 14.8 % (11.5-14.0); SEGMENTED NEUTROPHILS % (AUTO) 47.8 % (42-78); TOTAL CELLS COUNTED % (AUTO) 100 %; WHITE BLOOD COUNT 4.1 10^3/uL (4.0-10.5)
[2018-10-16] MEDS ORDERED: ONDANSETRON HCL INJ/PF 4 MG/2 ML SDV IV ONE (03:21)
[2018-10-16] MEDS ORDERED: KETOROLAC TROMETHAMINE INJ/PF 30 MG/1 ML SDV IV ONE (03:21)
[2018-10-16 03:26] LABS: ALBUMIN 4.5 g/dL (3.5-5.0); ALCOHOL < 10 mg/dL (NONE DETECTED); ALKALINE PHOSPHATASE 70 U/L (38-126); ANION GAP 9 (5-19); ASPARTATE AMINO TRANSFERASE 22 U/L (17-59); BILIRUBIN,DIRECT 0.3 mg/dL (0.0-0.4); BILIRUBIN,TOTAL 0.4 mg/dL (0.2-1.3); BLOOD UREA NITROGEN 14 mg/dL (7-20); CALCIUM 9.8 mg/dL (8.4-10.2); CARBON DIOXIDE 27 mmol/L (22-30); CHLORIDE 103 mmol/L (98-107); GLUCOSE 99 mg/dL (75-110); POTASSIUM 3.8 mmol/L (3.6-5.0); TOTAL PROTEIN 7.4 g/dL (6.3-8.2)
[2018-10-16 03:30] LABS: APPEARANCE,URINE CLEAR; BILIRUBIN,URINE NEGATIVE (NEGATIVE); COLOR,URINE YELLOW; GLUCOSE, URINE NEGATIVE (NEGATIVE); KETONES,URINE TRACE mg/dL (NEGATIVE); LEUKOCYTE ESTERASE,URINE MODERATE (NEGATIVE); NITRITE,URINE NEGATIVE (NEGATIVE); PROTEIN,URINE NEGATIVE (NEGATIVE); URINE SPECIFIC GRAVITY 1.009; UROBILINOGEN,URINE NEGATIVE mg/dL (<2.0)
[2018-10-16 03:45] LABS: URINE AMPHETAMINES SCREEN NEGATIVE; URINE BARBITURATES SCREEN NEGATIVE; URINE BENZODIAZEPINES SCREEN NEGATIVE; URINE COCAINE SCREEN NEGATIVE; URINE MARIJUANA (THC) SCREEN NEGATIVE; URINE METHADONE SCREEN NEGATIVE; URINE PHENCYCLIDINE SCREEN NEGATIVE
[2018-10-16 05:44] VITALS: BP 105/71
--- NOTE | 2018-10-16 23:26 | EKG REPORT ---
SEVERITY:- NORMAL ECG - SINUS RHYTHM : Confirmed by: Arthur Swift 16-Oct-2018 23:25:59
== END 2018-10-16 05:50 | disposition home or self-care (01) ==
LOC: ER 01:53
DX: K29.20 Alcoholic gastritis without bleeding (principal); R10.13 Epigastric pain; R11.0 Nausea; Z86.718 Personal history of other venous thrombosis and embolism
CPT/HCPCS: 93005; 99284; 96374; 96375; 36415; 80307 ×2; 83690; 85025; 80053; 81001; 84484; 93010; J1885; J2405

== ENCOUNTER 2018-11-07 20:37 | Emergency (ER) | payer MEDICARE, MEDICAID ==
--- NOTE | 2018-11-07 21:26 | ER Document Report ---
ED Medical Screen (RME) - General Chief Complaint: Nasal Congestion Stated Complaint: NASAL CONGESTION Time Seen by Provider: 11/07/18 21:22 Primary Care Provider: JEROME ABRAHAM MD [Primary Care Provider] - Follow up as needed Mode of Arrival: Ambulatory Information source: Patient Notes: 38-year-old male with history of lupus and congestive heart failure presents emergency department with nasal congestion and he also reports spots in his eyes. Denies fever vomiting diarrhea. Patient reports symptoms started this afternoon. He did take a decongestant without relief of symptoms. He reports he started to have sinus issues every year now. I have greeted and performed a rapid initial assessment of this patient. A comprehensive ED assessment and evaluation of the patient, analysis of test results and completion of the medical decision making process will be conducted by additional ED providers. Dictation of this chart was performed using voice recognition software; therefore, there may be some unintended grammatical errors. TRAVEL OUTSIDE OF THE [place] IN LAST 30 DAYS: No - Related Data Allergies/Adverse Reactions: COMPA Inhibitors [Compa Inhibitors] Allergy (Intermediate, Verified 05/25/18 15:49) Hives Sulfa (Sulfonamide Antibiotics) Allergy (Intermediate, Verified 05/25/18 15:49) Hives ACEINHIBITORS [COMPA Inhibitors] Allergy (Unknown, Verified 05/25/18 15:49) shellfish derived [Shellfish Derived] Allergy (Unknown, Verified 05/25/18 15:49) iodine [Iodine] Allergy (Verified 05/25/18 15:49) sulfamethoxazole [From Septra DS] Allergy (Verified 05/25/18 15:49) trimethoprim [From Septra DS] Allergy (Verified 05/25/18 15:49) Past Medical History - Social History Frequency of alcohol use: Occasional Drug Abuse: None - Past Medical History Cardiac Medical History: Reports: Hx DVT Renal/ Medical History: Denies: Hx Peritoneal Dialysis Musculoskeltal Medical History: Reports Hx Arthritis - RA Past Surgical History: Reports: Hx Orthopedic Surgery - distal R index finger amputated, Hx Testicular Surgery - R testicle removed - Immunizations Immunizations up to date: Yes Hx Diphtheria, Pertussis, Tetanus Vaccination: No Physical Exam - Vital signs Vitals: Temp Resp BP 98.2 F 18 115/64 11/07/18 21:05 11/07/18 21:05 11/07/18 21:05 Course - Vital Signs Vital signs: Temp Pulse Resp BP Pulse Ox 98.2 F 90 18 115/64 99 11/07/18 21:05 11/07/18 21:08 11/07/18 21:05 11/07/18 21:05 11/07/18 21:08 Doctor's Discharge - Discharge Referrals: JEROME ABRAHAM MD [Primary Care Provider] - Follow up as needed
[2018-11-07] MEDS ORDERED: PSEUDOEPHEDRINE HCL 30 MG TABLET PO ONE (23:33)
[2018-11-07] MEDS ORDERED: CETIRIZINE 10 MG TABLET PO ONE (23:34)
[2018-11-07] MEDS ORDERED: ACETAMINOPHEN 325 MG TABLET PO ONE (23:34)
--- NOTE | 2018-11-07 23:36 | ER Document Report ---
HPI - HPI Patient complains to provider of: nasal congestion Time Seen by Provider: 11/07/18 21:22 Onset: Yesterday Onset/Duration: Gradual Quality of pain: Achy Pain Level: 2 Context: Patient reports nasal congestion symptoms that started yesterday with ear pain and sore throat. Patient states occasionally he will have spots in his vision that come and go. Patient does wear glasses although does not have them with him here tonight. Patient denies any cough. Patient denies headache nausea or vomiting. Associated Symptoms: Earache, Rhinnorhea, Sinus pain/drainage, Sore throat. denies: Nonproductive cough, Fever, Nausea Exacerbated by: Denies Relieved by: Denies Similar symptoms previously: No Recently seen / treated by doctor: No - ROS ROS below otherwise negative: Yes Systems Reviewed and Negative: Yes All other systems reviewed and negative - CONSTITUTIONAL Constitutional: DENIES: Fever, Chills - EENT EENT: REPORTS: Sore Throat, Ear Pain, Nasal Drainage-Clear, Congestion, Eye problems - NEURO Neurology: DENIES: Headache, Vision blurred - RESPIRATORY Respiratory: DENIES: Coughing - GASTROINTESTINAL Gastrointestinal: DENIES: Nausea, Patient vomiting - DERM Skin Color: Normal Skin Problems: None Past Medical History - General Information source: Patient - Social History Smoking Status: Current Every Day Smoker Smoking Education Provided: Yes Frequency of alcohol use: Occasional Drug Abuse: None Occupation: None Lives with: Family Family History: Reviewed & Not Pertinent Patient has suicidal ideation: No Patient has homicidal ideation: No - Medical History Medical History: Other - Lupus - Past Medical History Cardiac Medical History: Reports: Hx DVT Renal/ Medical History: Denies: Hx Peritoneal Dialysis Musculoskeletal Medical History: Reports Hx Arthritis - RA Past Surgical History: Reports: Hx Orthopedic Surgery - distal R index finger amputated, Hx Testicular Surgery - R testicle removed - Immunizations Immunizations up to date: Yes Hx Diphtheria, Pertussis, Tetanus Vaccination: No Vertical Provider Document - CONSTITUTIONAL Agree With Documented VS: Yes Exam Limitations: No Limitations General Appearance: WD/WN, No Apparent Distress - INFECTION CONTROL TRAVEL OUTSIDE OF THE [place] IN LAST 30 DAYS: No - HEENT HEENT: Atraumatic, Normocephalic, PERRLA, Pharyngeal Tenderness, Pharyngeal Erythema. negative: Pharyngeal Exudate, Tympanic Membrane Red, Tympanic Me mbrane Bulging Notes: Swollen nasal mucosa with cream-colored nasal drainage normal fundoscopic exam - NECK Neck: Normal Inspection, Supple. negative: Lymphadenopathy-Left, Lymphadenopathy-Right - RESPIRATORY Respiratory: Breath Sounds Normal, No Respiratory Distress, Chest Non-Tender - CARDIOVASCULAR Cardiovascular: Regular Rate, Regular Rhythm, No Murmur - MUSCULOSKELETAL/EXTREMETIES Musculoskeletal/Extremeties: MAEW - NEURO Level of Consciousness: Awake, Alert, Appropriate Motor/Sensory: No Motor Deficit - DERM Integumentary: Warm, Dry, No Rash Course - Re-evaluation Re-evalutation: 11/08/18 00:35 Patient visual acuity reviewed. Visual acuity was completed without patient wearing his glasses. Normal funduscopic exam, no concern for retinal detachment. Patient encouraged to follow-up with his appian bpm developer for recheck. We will plan on symptomatic treatment for congestion symptoms. No concern for sinusitis at this time. 11/08/18 00:39 - Vital Signs Vital signs: Temp Pulse Resp BP Pulse Ox 98.2 F 90 18 115/64 99 11/07/18 21:05 11/07/18 21:08 11/07/18 21:05 11/07/18 21:05 11/07/18 21:08 - Laboratory Laboratory results interpreted by me: 11/08/18 00:35 Labs- Entire Visit 11/07/18 23:45 Group A Strep Rapid NEGATIVE Discharge - Discharge Clinical Impression: Sinus congestion, Sore throat Upper respiratory infection Qualifiers: URI type: unspecified URI Qualified Code(s): J06.9 - Acute upper respiratory infection, unspecified Condition: Stable Disposition: HOME, SELF-CARE Instructions: Acetaminophen, Upper Respiratory Illness ([facility]), Sore Throat ([facility]) Additional Instructions: Return immediately for any new or worsening symptoms Followup with your primary care provider, call tomorrow to make a followup appointment Follow-up with your appian bpm developer for recheck, call tomorrow for an appointment Prescriptions: Fluticasone Propionate [Flonase Nasal [place] 50 Mcg/[place] 16 gm] 2 spray NASL DAILY #1 bottle Guaifenesin/Pseudoephedrne HCl [Mucinex D ER 1,200-120 mg Tab] 1 each PO Q12 PRN #12 tab.er.12h PRN Reason: Forms: Smoking Cessation Education Referrals: JEROME ABRAHAM MD [Primary Care Provider] - Follow up tomorrow OFFICE [facility] [Provider Group] - Follow up as needed [facility] [Provider Group] - Follow up as needed
[2018-11-08 00:56] VITALS: BP 100/58
== END 2018-11-08 00:56 | disposition home or self-care (01) ==
LOC: ER 20:37
DX: J06.9 Acute upper respiratory infection, unspecified (principal); J02.9 Acute pharyngitis, unspecified; R09.81 Nasal congestion; H92.09 Otalgia, unspecified ear; J34.89 Other specified disorders of nose and nasal sinuses; R09.89 Other specified symptoms and signs involving the circulatory and respiratory systems; F17.200 Nicotine dependence, unspecified, uncomplicated
CPT/HCPCS: 99283; 87070; 87880; A9270 ×3

== ENCOUNTER 2019-03-08 20:40 | Emergency (ER) | payer MEDICARE, MEDICAID ==
--- NOTE | 2019-03-08 21:41 | ER Document Report ---
HPI - HPI Patient complains to provider of: cough fever Time Seen by Provider: 03/08/19 21:23 Onset: Other - few days Pain Level: 3 Context: 38-year-old male with history of congestive heart failure and lupus presents to the emergency department with complaints of cough and congestion for the past couple days. Reports his son's been sick and he thinks he is just catching it. Denies fever vomiting diarrhea. Associated Symptoms: Nonproductive cough Exacerbated by: Denies Relieved by: Denies Similar symptoms previously: No Recently seen / treated by doctor: No Past Medical History - General Information source: Patient - Social History Smoking Status: Current Every Day Smoker Cigarette use (# per day): Yes Frequency of alcohol use: None Drug Abuse: None Lives with: Family Family History: Reviewed & Not Pertinent Patient has suicidal ideation: No Patient has homicidal ideation: No - Past Medical History Cardiac Medical History: Reports: Hx Congestive Heart Failure, Hx DVT Renal/ Medical History: Denies: Hx Peritoneal Dialysis Musculoskeletal Medical History: Reports Hx Arthritis - RA Past Surgical History: Reports: Hx Orthopedic Surgery - distal R index finger amputated, Hx Testicular Surgery - R testicle removed - Immunizations Immunizations up to date: Yes Hx Diphtheria, Pertussis, Tetanus Vaccination: No Vertical Provider Document - CONSTITUTIONAL Agree With Documented VS: Yes Exam Limitations: No Limitations General Appearance: WD/WN, No Apparent Distress - nontoxic looking - INFECTION CONTROL TRAVEL OUTSIDE OF THE [place] IN LAST 30 DAYS: No - HEENT HEENT: Atraumatic, Normal ENT Exam, Normocephalic. negative: Conjuctival Injection, Pharyngeal Erythema, Tympanic Membrane Red - NECK Neck: Normal Inspection, Supple. negative: Lymphadenopathy-Left, Lymphadenopathy-Right - RESPIRATORY Respiratory: Breath Sounds Normal, No Respiratory Distress. negative: Rhonchi, Wheezing - CARDIOVASCULAR Cardiovascular: Regular Rate, Regular Rhythm - GI/ABDOMEN Gastrointestinal: Abdomen Soft, Abdomen Non-Tender - MUSCULOSKELETAL/EXTREMETIES Musculoskeletal/Extremeties: LENCHO BERGERON - NEURO Level of Consciousness: Awake, Alert, Appropriate Motor/Sensory: No Motor Deficit - DERM Integumentary: Warm, Dry Course - Re-evaluation Re-evalutation: 03/08/19 21:43 38-year-old male with history of congestive heart failure lupus presents to the emergency department with cough congestion for last couple days. Patient looks good respiratory rate even unlabored. 03/08/19 22:24 Chest X-Ray 03/08/19 21:32 IMPRESSION: Negative chest copyright 2011 [employer]- All Rights Reserved Chest x-ray negative vital signs stable. Patient discharged with instructions to monitor cough monitor temp follow-up with his primary care provider, return for worsening symptoms difficulty breathing - Vital Signs Vital signs: Temp Pulse Resp BP Pulse Ox 99.0 F 52 L 20 111/60 98 03/08/19 21:09 03/08/19 21:09 03/08/19 21:09 03/08/19 21:09 03/08/19 21:09 - Diagnostic Test Radiology reviewed: Image reviewed, Reports reviewed Discharge - Discharge Clinical Impression: Cough Condition: Stable Disposition: HOME, SELF-CARE Additional Instructions: *You have been evaluated for cold symptoms today, cough, congestion *Your chest x-ray was negative for pneumonia *Increase fluid intake *Monitor your temperature, take Tylenol as indicated *Follow up with a primary care provider within 1 week for recheck *Return to ED for worsening condition, changes, needs, difficulty breathing, concerns Referrals: JEROME ABRAHAM MD [Primary Care Provider] - Follow up in 3-5 days
--- NOTE | 2019-03-08 22:19 | RADIOLOGY REPORT (SQ) ---
EXAM DESCRIPTION: XR CHEST 2 VIEWS COMPLETED DATE/TME: 03/08/2019 21:32 CLINICAL HISTORY: 38 years, Male, cough fever COMPARISON: 05/31/2018 chest NUMBER OF VIEWS: 2 TECHNIQUE: 2 views of the chest LIMITATIONS: None. FINDINGS: The heart size is normal. Lungs are clear. No pneumothorax IMPRESSION: Negative chest copyright 2010 [employer]- All Rights Reserved
[2019-03-08 23:32] VITALS: BP 108/57
== END 2019-03-08 23:45 | disposition home or self-care (01) ==
LOC: ER 20:40
DX: R05 Cough (principal); R50.9 Fever, unspecified; I50.9 Heart failure, unspecified; F17.200 Nicotine dependence, unspecified, uncomplicated
CPT/HCPCS: 71046; 99283

== ENCOUNTER → 2019-08-20 | Outpatient (CLI) | payer MEDICARE, MEDICAID ==
--- NOTE | 2019-08-20 14:23 | RADIOLOGY REPORT (SQ) ---
EXAM DESCRIPTION: FINGERS LEFT IMAGES COMPLETED DATE/TIME: 08/20/2019 1:20 pm REASON FOR STUDY: PAIN IN LEFT FINGER(S),UNSP INJURY OF LEFT WRIST, HAND AND FINGER(S), INIT M79.645 PAIN IN LEFT FINGER(S) S69.92XA UNSP INJURY OF LEFT WRIST, HAND AND FINGER(S), INIT COMPARISON: None. NUMBER OF VIEWS: Three views. TECHNIQUE: AP, lateral, and oblique images acquired of the left second finger. LIMITATIONS: None. FINDINGS: MINERALIZATION: Normal. BONES: No acute fracture or dislocation. No worrisome bone lesions. SOFT TISSUES: No soft tissue swelling. No foreign body. OTHER: No other significant finding. IMPRESSION: NO RADIOGRAPHIC EVIDENCE OF ACUTE INJURY. TECHNICAL DOCUMENTATION: JOB ID: [id number] 2010 [employer]- All Rights Reserved Reading location - IP/workstation name: [email or web address]
== END ==
LOC: OD 11:47
PROVIDERS: ATTEND Physician Assistant
DX: M79.645 Pain in left finger(s) (principal); S69.92XA Unspecified injury of left wrist, hand and finger(s), initial encounter; X58.XXXA Exposure to other specified factors, initial encounter

== ENCOUNTER 2019-09-29 22:04 | Emergency (ER) | payer MEDICARE, MEDICAID | END 2019-09-29 23:30 | disposition left against medical advice (07) | LOC: ER 22:04 | DX: Z53.21 Procedure and treatment not carried out due to patient leaving prior to being seen by health care provider (principal); R10.13 Epigastric pain ==

== ENCOUNTER 2019-10-12 01:18 | Emergency (ER) | payer MEDICARE, MEDICAID ==
[2019-10-12] MEDS ORDERED: LIDOCAINE 2% VISCOUS SOLN 15 ML UDCUP PO ONE (03:46)
[2019-10-12] MEDS ORDERED: MAG HYDROX/AL HYDROX/SIMETH SUSP 30 ML UDCUP PO ONE (03:47)
[2019-10-12] MEDS ORDERED: METOCLOPRAMIDE HCL ORAL SOLN 10 MG/10 ML UDCUP PO ONE (03:47)
--- NOTE | 2019-10-12 04:30 | ER Document Report ---
Entered by BOB CASTILLO SCRIBE 10/12/19 0349 Acting as scribe for:DANICA ZHANG IV, MD ED GI/ - General Chief Complaint: Abdominal Pain Stated Complaint: ABDOMINAL PAIN/NAUSEA/OTHER Time Seen by Provider: 10/12/19 03:34 Primary Care Provider: DAVID KINGSTON PA [Primary Care Provider] - Follow up as needed Mode of Arrival: Ambulatory Information source: Patient Notes: This 39 year old male patient presents to the ED today with complaints of epigastric pain that started around 0900 yesterday morning. Patient states that he was started on Omeprazole by his PCP. Patient reports a history of lupus and DVT. Denies any leg swelling. TRAVEL OUTSIDE OF THE [place] IN LAST 30 DAYS: No - Related Data Allergies/Adverse Reactions: COMPA Inhibitors [Compa Inhibitors] Allergy (Intermediate, Verified 05/25/18 15:49) Hives Sulfa (Sulfonamide Antibiotics) Allergy (Intermediate, Verified 05/25/18 15:49) Hives ACEINHIBITORS [COMPA Inhibitors] Allergy (Unknown, Verified 05/25/18 15:49) shellfish derived [Shellfish Derived] Allergy (Unknown, Verified 05/25/18 15:49) iodine [Iodine] Allergy (Verified 05/25/18 15:49) sulfamethoxazole [From Septra DS] Allergy (Verified 05/25/18 15:49) trimethoprim [From Septra DS] Allergy (Verified 05/25/18 15:49) Home Medications: omeprazole Past Medical History - General Information source: Patient, [facility] Records - Social History Smoking Status: Current Every Day Smoker Chew tobacco use (# tins/day): No Smoking Education Provided: No Frequency of alcohol use: Heavy Drug Abuse: None Family History: Reviewed & Not Pertinent Patient has suicidal ideation: No Patient has homicidal ideation: No - Medical History Medical History: Other - Hx Lupus - Past Medical History Cardiac Medical History: Reports: Hx Congestive Heart Failure, Hx DVT Musculoskeletal Medical History: Reports Hx Arthritis - RA Past Surgical History: Reports: Hx Orthopedic Surgery - distal R index finger amputated, Hx Testicular Surgery - R testicle removed - Immunizations Immunizations up to date: Yes Hx Diphtheria, Pertussis, Tetanus Vaccination: No Review of Systems - Review of Systems Constitutional: No symptoms reported EENT: No symptoms reported Cardiovascular: No symptoms reported Respiratory: No symptoms reported Gastrointestinal: See HPI, Abdominal pain Genitourinary: No symptoms reported Male Genitourinary: No symptoms reported Musculoskeletal: See HPI. denies: Leg swelling Skin: No symptoms reported Hematologic/Lymphatic: No symptoms reported Neurological/Psychological: No symptoms reported -: Yes All other systems reviewed and negative Physical Exam - Vital signs Vitals: Temp Pulse Resp BP Pulse Ox 97.6 F 95 20 112/66 97 10/12/19 01:25 10/12/19 01:25 10/12/19 01:25 10/12/19 01:25 10/12/19 01:25 - General General appearance: Other - Sleeping, but easily aroused In distress: None - HEENT Head: Normocephalic, Atraumatic Eyes: Normal Extraocular movements intact: Yes Pupils: PERRL - Respiratory Respiratory status: No respiratory distress Chest status: Nontender Breath sounds: Normal Chest palpation: Normal - Cardiovascular Rhythm: Regular Heart sounds: Normal auscultation Murmur: No Friction rub: No Gallop: None auscultated - Abdominal Inspection: Normal Distension: No distension Bowel sounds: Normal Tenderness: Nontender - Abdomen soft Organomegaly: No organomegaly - Back Back: Normal, Nontender - Extremities General upper extremity: Normal inspection General lower extremity: Normal inspection. No: Edema - Neurological Neuro grossly intact: Yes Orientation: AAOx4 [place] Coma Scale Eye Opening: Spontaneous [place] Coma Scale Verbal: Oriented [place] Coma Scale Motor: Obeys Commands [place] Coma Scale Total: 15 - Psychological Associated symptoms: Normal affect, Normal mood - Skin Skin Temperature: Warm Skin Moisture: Dry Skin Color: Normal Course - Re-evaluation Re-evalutation: 10/12/19 04:56 Patient states her symptoms have resolved after being given a GI cocktail. Results of the ED MSE discussed with patient. All questions were answered prior to discharge. Emergency signs and symptoms, reasons to return to the emergency department discussed with patient. - Vital Signs Vital signs: Temp Pulse Resp BP Pulse Ox 97.6 F 95 15 105/64 98 10/12/19 01:48 10/12/19 01:25 10/12/19 04:00 10/12/19 04:01 10/12/19 04:00 - Diagnostic Test Radiology reviewed: Reports reviewed - EKG Interpretation by Me Additional EKG results interpreted by me: 10/12/19 04:57 EKG obtained on 10/12/2019 at 0202 hrs. was interpreted by this MD. Findings: Sinus bradycardia, rate 52, normal axis, P waves preceding QRS complexes, there are no obvious patterns of ST segment elevation or depression present to suggest acute myocardial ischemia or infarction. Impression: Sinus bradycardia with nonspecific ST segments. Discharge - Discharge Clinical Impression: Gastritis Qualifiers: Gastritis type: unspecified gastritis Chronicity: acute Gastritis bleeding: presence of bleeding unspecified Qualified Code(s): K29.00 - Acute gastritis without bleeding Condition: Stable Disposition: HOME, SELF-CARE Additional Instructions: Return to the Emergency Department without delay if any worse. You can buy some Zegerid over the counter if your current stomach acid medicine does not seem to be working for you. Take the Zegerid as directed for help with your gastritis symptoms. HOME CARE INSTRUCTIONS & INFORMATION: Thank you for choosing us for your medical needs. We hope you're satisfied with the care you received. After you leave, you must properly care for your problem and, at the same time, observe its progress. Any condition can change. Some illnesses can change rapidly over hours or days. If your condition worsens, return to the Emergency Department or see your physician promptly. ABOUT YOUR X-RAYS AND EKG'S: If you had an EKG or X-rays taken, they have been read by the Emergency Physician. The X-rays and EKG's will also be read by a Radiologist or X Ray Equipment Mechanic within 24 hours. If discrepancies are noted, you will be notified by telephone. Please be certain the ED has a correct telephone number & address where you can be reached. Also, realize that some fractures or abnormalities do not show up on initial X-rays. If your symptoms continue, see your physician. ABOUT YOUR LABORATORY TEST: If you had laboratory tests, the results have been reviewed by the Emergency Physician. Some test results (for example cultures) may not be available for several days. You will be contacted if any test result shows you need additional treatment. Please be certain the ED has a correct telephone number and address where you can be reached. ABOUT YOUR MEDICATIONS: You will receive instructions on how to take your medicine on the prescription label you receive. Additional information may be provided by the Pharmacy. If you have questions afterwards, call the ED for clarification or further instructions. Some prescribed medications may cause drowsiness. Do not perform tasks such as driving a car or operating machinery without consulting your Pharmacist. If you feel you need a refill of pain medication, your condition will need re-evaluation. Please do not call for a refill of any medication. ABOUT YOUR SIGNATURE: Signature of this document acknowledges to followin. Understanding that you received emergency treatment and that you may be released before al medical problems are known or treated. Please be certain the ED has a correct phone number & address where you can be reached. 2. Acknowledgement that you will arrange for follow-up care as recommended. 3. Authorization for the Emergency Physician to provide information to your follow-up Physician in order to maximize your care. AT ANY TIME, IF YOUR SYMPTOMS CHANGE SIGNIFICANTLY OR WORSEN OR YOU DEVELOP NEW SYMPTOMS, RETURN TO THE EMERGENCY DEPARTMENT IMMEDIATELY FOR RE-EVALUATION. OUR GOAL IS TO PROVIDE EXCELLENT MEDICAL CARE! WE HOPE THAT WE HAVE MET YOUR EXPECTATIONS DURING YOUR EMERGENCY DEPARTMENT VISIT AND THAT YOU FEEL YOU HAVE RECEIVED EXCELLENT CARE! Gastritis You have an inflammation of the stomach called gastritis. This commonly causes upper abdominal pain, nausea, and vomiting. In severe cases, bleeding of the stomach lining can occur. Gastritis can be caused by bacteria or viruses, alcohol, or stomach-irritating drugs. Begin with sips of clear liquids. Take increasing amounts of fluid over the first 24 hours. Then start small amounts of bland foods (such as dry toast, applesauce, mashed potato). Gradually resume your usual diet. You should take antacids every two hours until the pain has subsided. Acid-suppressing drugs may be prescribed as well. Avoid aspirin, caffeine, tobacco, and alcohol. If the abdominal pain worsens, or there is evidence of major bleeding in the stomach (such as black, tarry stool, bloody or black vomit, or lightheadedness), you should return immediately. Call the doctor if you aren't improved in 24 to 36 hours. Referrals: DAVID KINGSTON PA [Primary Care Provider] - Follow up as needed I personally performed the services described in the documentation, reviewed and edited the documentation which was dictated to the scribe in my presence, and it accurately records my words and actions.
--- NOTE | 2019-10-12 04:54 | RADIOLOGY REPORT (SQ) ---
CLINICAL INDICATION: chest pain. TECHNIQUE: A single portable AP view was obtained of the chest at 0417 hours. COMPARISON: May 31, 2018. FINDINGS: The cardiomediastinal silhouette appears top normal but stable. The lungs are grossly clear. No evidence of effusion or pneumothorax. The visualized bones are unremarkable. IMPRESSION: No evidence of active intrathoracic disease.
[2019-10-12 05:22] VITALS: BP 112/72
--- NOTE | 2019-10-12 19:00 | EKG REPORT ---
SEVERITY:- NORMAL ECG - SINUS RHYTHM : Confirmed by: Estefany Goldsmith MD 12-Oct-2019 18:59:17
== END 2019-10-12 05:33 | disposition home or self-care (01) ==
LOC: ER 01:18
DX: K29.00 Acute gastritis without bleeding (principal); R10.13 Epigastric pain; R00.1 Bradycardia, unspecified; F17.200 Nicotine dependence, unspecified, uncomplicated; Z88.8 Allergy status to other drugs, medicaments and biological substances; Z88.2 Allergy status to sulfonamides; Z91.013 Allergy to seafood; Z88.1 Allergy status to other antibiotic agents
CPT/HCPCS: 93005; 99284; 71045; 93010; J3490; A9270 ×2

== ENCOUNTER 2019-12-17 23:43 | Emergency (ER) | payer MEDICARE, MEDICAID ==
[2019-12-17 23:55] VITALS: BP 128/58
[2019-12-18] MEDS ORDERED: PENICILLIN V POTASSIUM 500 MG TABLET PO ONE (00:04)
--- NOTE | 2019-12-18 00:08 | ER Document Report ---
HPI - HPI Time Seen by Provider: 12/17/19 23:59 Pain Level: 5 Context: Patient is a 39-year-old male who presents emergency department with a chief complaint gum pain. Patient states that he has had a symptoms for the past couple of days. Patient also states that he has teeth pain. He has "not seen a dentist in a while." Denies any shortness of breath or difficulty breathing. - ROS Systems Reviewed and Negative: Yes All other systems reviewed and negative - CONSTITUTIONAL Constitutional: DENIES: Fever, Chills - EENT EENT: DENIES: Sore Throat, Ear Pain Notes: Teeth pain/gum pain - NEURO Neurology: DENIES: Headache, Weakness - CARDIOVASCULAR Cardiovascular: DENIES: Chest pain - RESPIRATORY Respiratory: DENIES: Trouble Breathing, Coughing - GASTROINTESTINAL Gastrointestinal: DENIES: Abdominal Pain, Nausea, Patient vomiting - REPRODUCTIVE Reproductive: DENIES: : - MUSCULOSKELETAL Musculoskeletal: DENIES: Extremity pain - DERM Skin Color: Normal Skin Problems: None Past Medical History - Social History Smoking Status: Current Every Day Smoker Family History: Reviewed & Not Pertinent - Past Medical History Cardiac Medical History: Reports: Hx Congestive Heart Failure, Hx DVT Renal/ Medical History: Denies: Hx Peritoneal Dialysis Musculoskeletal Medical History: Reports Hx Arthritis - RA Past Surgical History: Reports: Hx Orthopedic Surgery - distal R index finger amputated, Hx Testicular Surgery - R testicle removed - Immunizations Immunizations up to date: Yes Hx Diphtheria, Pertussis, Tetanus Vaccination: No Vertical Provider Document - CONSTITUTIONAL Agree With Documented VS: Yes Exam Limitations: No Limitations General Appearance: No Apparent Distress - INFECTION CONTROL TRAVEL OUTSIDE OF THE [place] IN LAST 30 DAYS: No - HEENT HEENT: Atraumatic, Normocephalic, PERRLA Mouth Diagram: 1 - Dental carry noted - NECK Neck: Normal Inspection, Supple. negative: Lymphadenopathy-Left, Lymphadenopathy-Right - RESPIRATORY Respiratory: Breath Sounds Normal, No Respiratory Distress - CARDIOVASCULAR Cardiovascular: Regular Rhythm Pulses: Normal: Radial - MUSCULOSKELETAL/EXTREMETIES Musculoskeletal/Extremeties: FROM - NEURO Level of Consciousness: Awake, Alert, Appropriate Motor/Sensory: No Motor Deficit, No Sensory Deficit - DERM Integumentary: Warm, Dry, No Rash Course - Re-evaluation Re-evalutation: 12/18/19 00:07 Patient's physical exam and history is most consistent with a infected tooth. Patient is able to swallow, no facial swelling noted, airway is patent, vital signs are normal. I do not suspect Gucci's angina, peritonsilar abscess, or airway obstruction. The patient will be started on oral antibiotics. I have given the patient education on their antibiotics. Patient was given instructions to follow-up with a dentist this week. Return precautions were given. Verbal discharge instructions were given. Patient verbalized understanding. Patient is stable for discharge. - Vital Signs Vital signs: Temp Pulse Resp BP Pulse Ox 98.8 F 102 H 19 128/58 H 97 12/17/19 23:54 12/17/19 23:54 12/17/19 23:54 12/17/19 23:54 12/17/19 23:54 Discharge - Discharge Clinical Impression: Pain in gums, Dental caries Condition: Stable Disposition: HOME, SELF-CARE Instructions: Penicillin V K ([facility]), Toothache ([facility]) Additional Instructions: You have been seen in the emergency department for a toothache. You may take ibuprofen 600 mg and Tylenol 1000 mg every 6 hours as needed for the pain. You have also been prescribed antibiotics. Please take the antibiotics as prescribed, even if you start to feel better. If you develop a fever greater than 100.4 F, or have any symptoms that are worrisome to you, please return to the emergency department. Please follow-up with a dentist this week in regards to your visit. Prescriptions: Penicillin V Potassium [Penicillin Vk 500 mg Tablet] 500 mg PO QID #28 tablet Referrals: DAVID KINGSTON PA [Primary Care Provider] - Follow up as needed
== END 2019-12-18 00:10 | disposition home or self-care (01) ==
LOC: ER 23:43
DX: K02.9 Dental caries, unspecified (principal); K08.89 Other specified disorders of teeth and supporting structures; F17.200 Nicotine dependence, unspecified, uncomplicated
CPT/HCPCS: 99283; A9270